=== PATIENT | male | born 1985 | race Two or more races ===

== ENCOUNTER 2017-04-03 11:10 | Emergency (ER) | payer SELFPAY ==
[2017-04-03 11:15] VITALS: BP 126/80; BMI 27.3
--- NOTE | 2017-04-03 11:34 | DR.GENAD ---
HPI - PCP Primary Care Physician: CHARLIE - HPI Comment HPI Comment: PAIN ASSOCIATED WITH WEAKNESS AND SOB. NO FEVER. - Complaint/Symptoms Chief Complaint Doctors Comments: CHEST PAIN TIMES 5 DAYS. INTERMITTENT. Chief Complaint:: PATIENT STATED HE HAS HAD CHEST PAIN THAT GOES AND COMES FOR 5 DAYS . WHEN IT COMES ITS STABING PAIN - Nurses notes reviewed Nurses Notes Review: Yes - Source History Provided: Patient - Mode of Arrival Mode of Arrival: Ambulatory - Timing Onset of Chief Complaint: 03/29/17 Came on: Suddenly - Duration Duration: Constant Duration: Days - Severity Severity: Moderate PMH - PMH Past Medical History: No Past Medical History: GERD Past Surgical History: No Surgical History: No History - Family History History of Family Medical Conditions: No - Social History Does patient currently use any type of tobacco product: No Have you used tobacco products in the last 12 months: No Type of Tobacco Use: None Does any household member use tobacco: No Alcohol Use: None Do you use any recreational Drugs:: No Lives With: Family Lives Where: Home - infectious screening In the last 2 months have you had wt loss of >10#?: NO Have you had fever, night sweats or hemotysis?: No Have you traveled outside the country in the last 6 months?: No Isolation: Standard ROS - Review of Systems Constitutional: Weakness, Fatigue. negative: Chills, Fever, Loss of Appetite Eyes: No Symptoms Reported. negative: Eye Pain, Discharge ENTM: No Symptoms Reported. negative: Ear Pain, Nose Discharge, Nose Congestion , Throat Pain Respiratoy: Short of Breath. negative: Productive Cough, Non-Productive Cough, Wheezing, Hemoptysis Cardiovascular: Chest Pain. negative: Edema, Palpitations Gastrointestinal/Abdominal: Nausea. negative: Abdominal Pain, Constipation, Diarrhea, Vomiting Genitourinary: No Symptoms Reported. negative: Dysuria, Frequency, Hematuria Neurological: Weakness. negative: Headache, Dizziness Musculoskeletal: Muscle Pain PE - Vital Signs Vitals: Temperature 98.4 F Pulse Rate 67 Respiratory Rate 18 Blood Pressure 126/80 O2 Sat by Pulse Oximetry 100 ROR - Labs Reviewed Result Diagrams: 04/03/17 11:43 04/03/17 11:43 Laboratory: WBC 6.9 X10^3/uL (3.6-10.0) 04/03/17 11:43 RBC 5.10 X10^6/uL (4.7-6.0) 04/03/17 11:43 Hgb 16.0 g/dL (13.5-18.0) 04/03/17 11:43 Hct 45.6 % (42.0-54.0) 04/03/17 11:43 MCV 89.4 fL (80.0-100.0) 04/03/17 11:43 MCH 31.3 pg (27.0-34.0) 04/03/17 11:43 MCHC 35.0 g/dL (33.0-35.0) 04/03/17 11:43 RDW 12.6 % (11.6-16.5) 04/03/17 11:43 Plt Count 244 X10^3/uL (150.0-450.0) 04/03/17 11:43 MPV 6.7 fL (7.4-11.0) L 04/03/17 11:43 Neut % 63.2 % (42.0-75.0) 04/03/17 11:43 Lymph % 26.4 % (21.0-51.0) 04/03/17 11:43 Luna % 6.6 % (0.0-13.0) 04/03/17 11:43 Eos % 3.2 % (0.9-2.9) H 04/03/17 11:43 Baso % 0.6 % (0.2-1.0) 04/03/17 11:43 Neut # 4.4 x10^3/uL (2.2-4.8) 04/03/17 11:43 Lymph # 1.8 X10^3/uL (1.3-2.9) 04/03/17 11:43 Luna # 0.5 x10^3/uL (0.3-0.8) 04/03/17 11:43 Eos # 0.2 x10^3/uL (0.0-0.2) 04/03/17 11:43 Baso # 0.0 X10^3/uL (0.0-0.1) 04/03/17 11:43 Absolute Nucleated RBC 0.0 /100WBC 04/03/17 11:43 Sodium 141 mmol/L (136-145) 04/03/17 11:43 Corrected Sodium TNP 04/03/17 11:43 Potassium 3.8 mmol/L (3.5-5.1) 04/03/17 11:43 Chloride 103 mmol/L (98-107) 04/03/17 11:43 Carbon Dioxide 28.0 mmol/L (21-32) 04/03/17 11:43 BUN 10 mg/dL (7-18) 04/03/17 11:43 Creatinine 0.85 mg/dL (0.70-1.30) 04/03/17 11:43 Est GFR (MDRD) Af Amer > 60 (>60) 04/03/17 11:43 Est GFR (MDRD) Non-Af > 60 (>60) 04/03/17 11:43 Glucose 103 mg/dL (65-99) H 04/03/17 11:43 Calcium 9.2 mg/dL (8.5-10.1) 04/03/17 11:43 Corrected Calcium TNP 04/03/17 11:43 Total Bilirubin 0.60 mg/dL (0.2-1.0) 04/03/17 11:43 AST 26 Units/L (15-37) 04/03/17 11:43 ALT 58 Units/L (12-78) 04/03/17 11:43 Alkaline Phosphatase 80 Units/L (46-116) 04/03/17 11:43 Creatine Kinase 98 Units/L (39-308) 04/03/17 11:43 CK-MB (CK-2) < 1.0 ng/mL (0-4.0) 04/03/17 11:43 CK/CKMB % Calc 1.0 % (<4) 04/03/17 11:43 Troponin I < 0.02 ng/mL (0-1.5) 04/03/17 11:43 Total Protein 7.7 g/dL (6.4-8.2) 04/03/17 11:43 Albumin 3.9 g/dL (3.4-5.0) 04/03/17 11:43 Globulin 3.8 g/dL (2.5-4.5) 04/03/17 11:43 Albumin/Globulin Ratio 1.0 Ratio (1.1-2.1) L 04/03/17 11:43 Specimen Type Clean catch urine 04/03/17 12:10 Urine Color Yellow (YELLOW) 04/03/17 12:10 Urine Appearance Clear (CLEAR) 04/03/17 12:10 Urine pH 8.0 (5.0 - 8.0) 04/03/17 12:10 Ur Specific [place] 1.010 (1.000-1.030) 04/03/17 12:10 Urine Protein Negative (NEGATIVE) 04/03/17 12:10 Urine Glucose (UA) Negative (NEGATIVE) 04/03/17 12:10 Urine Ketones Negative (NEGATIVE) 04/03/17 12:10 Urine Occult Blood Negative (NEGATIVE) 04/03/17 12:10 Urine Nitrite Negative (NEGATIVE) 04/03/17 12:10 Urine Bilirubin Negative (NEGATIVE) 04/03/17 12:10 Urine Urobilinogen Normal (NORMAL) 04/03/17 12:10 Ur Leukocyte Esterase Negative (NEGATIVE) 04/03/17 12:10 Urine RBC 0-2 /HPF (NEGATIVE) 04/03/17 12:10 Urine WBC 0-2 /HPF (NEGATIVE) 04/03/17 12:10 Ur Squamous Epith Cells Negative /HPF (NEGATIVE) 04/03/17 12:10 Urine Bacteria Negative /HPF (NEGATIVE) 04/03/17 12:10 Ur Culture Indicated? No/not indicated 04/03/17 12:10 Urine Opiates Screen Negative (NEG=<300) 04/03/17 12:10 Urine Methadone Screen Negative (NEG=<300) 04/03/17 12:10 Ur Barbiturates Screen Negative (NEG=<200) 04/03/17 12:10 Ur Phencyclidine Scrn Negative (NEG=<25) 04/03/17 12:10 Ur Amphetamines Screen Negative (NEG=<1000) 04/03/17 12:10 U Benzodiazepines Scrn Negative (NEG=<200) 04/03/17 12:10 Urine Cocaine Screen Negative (NEG=<300) 04/03/17 12:10 U Marijuana (THC) Screen Negative (NEG=<50) 04/03/17 12:10 H. pylori IgG Antibody Negative (NEGATIVE) 04/03/17 13:51 - Diagnosis Discharge Problem: Chest pain Qualifiers: Chest pain type: intercostal pain Qualified Code(s): R07.82 - Intercostal pain Shoulder pain Qualifiers: Laterality: right Chronicity: acute Qualified Code(s): M25.511 - Pain in right shoulder - Discharge Plan Disposition: 01 HOME, SELF-CARE Condition: Stable Prescriptions: Ibuprofen [MOTRIN TAB 600 MG *] 600 mg PO BID PRN #20 tab PRN Reason: Pain/Inflammation Ranitidine HCl [ZANTAC TAB 150 MG *] 150 mg PO BID #60 tab - Follow ups/Referrals Follow ups/Referrals: [facility],None [Primary Care Provider] - 3 days - Instructions Instructions: Chest Pain Observation, Shoulder Pain, [id number] Additional Instructions: RETURN TO ED IF WORSE.
[2017-04-03 11:57] LABS: BASOPHILS % (AUTO) 0.6 % (0.2-1.0); EOSINOPHILS # (AUTO) 0.2 x10^3/uL (0.0-0.2); EOSINOPHILS % (AUTO) 3.2 % (0.9-2.9); HEMATOCRIT 45.6 % (42.0-54.0); LYMPHOCYTES # (AUTO) 1.8 X10^3/uL (1.3-2.9); LYMPHOCYTES % (AUTO) 26.4 % (21.0-51.0); MEAN CORPUSCULAR HEMOGLOBIN 31.3 pg (27.0-34.0); MEAN CORPUSCULAR VOLUME 89.4 fL (80.0-100.0); MEAN PLATELET VOLUME 6.7 fL (7.4-11.0); MONOCYTES # (AUTO) 0.5 x10^3/uL (0.3-0.8); MONOCYTES % (AUTO) 6.6 % (0.0-13.0); NEUTROPHILS # (AUTO) 4.4 x10^3/uL (2.2-4.8); NEUTROPHILS % (AUTO) 63.2 % (42.0-75.0); PLATELET COUNT 244 X10^3/uL (150.0-450.0); RED CELL DISTRIBUTION WIDTH 12.6 % (11.6-16.5); WHITE BLOOD COUNT 6.9 X10^3/uL (3.6-10.0)
--- NOTE | 2017-04-03 12:11 | RAD ---
HISTORY: Chest pain Study: Single view chest Comparison: None Findings: The lungs are clear without consolidation, effusion or pneumothorax. The cardiac and mediastinal co ntours are within normal limits. The soft tissues are unremarkable. IMPRESSION: 1. No acute cardiopulmonary abnormality. Reported By:
[2017-04-03 12:12] LABS: BLOOD UREA NITROGEN 10 mg/dL (7-18); CALCIUM 9.2 mg/dL (8.5-10.1); CHLORIDE 103 mmol/L (98-107); CREATININE 0.85 mg/dL (0.70-1.30); GLUCOSE 103 mg/dL (65-99); SODIUM 141 mmol/L (136-145); TROPONIN I < 0.02 ng/mL (0-1.5); eGFR BLACK RACES > 60 (>60); eGFR NON BLACK RACES > 60 (>60)
[2017-04-03 12:16] LABS: ALANINE AMINOTRANSFERASE 58 Units/L (12-78); ALBUMIN 3.9 g/dL (3.4-5.0); ALKALINE PHOSPHATASE 80 Units/L (46-116); ASPARTATE AMINO TRANSFERASE 26 Units/L (15-37); CREATINE KINASE 98 Units/L (39-308); CREATINE KINASE MB < 1.0 ng/mL (0-4.0); TOTAL PROTEIN 7.7 g/dL (6.4-8.2)
[2017-04-03 12:17] LABS: BILIRUBIN,URINE NEGATIVE (NEGATIVE); BLOOD/HEMOGLOBIN,URINE NEGATIVE (NEGATIVE); GLUCOSE, URINE NEGATIVE (NEGATIVE); KETONES,URINE NEGATIVE (NEGATIVE); LEUKOCYTE ESTERASE ,URINE NEGATIVE (NEGATIVE); NITRITES,URINE NEGATIVE (NEGATIVE); PROTEIN,URINE NEGATIVE (NEGATIVE); UROBILINOGEN,URINE NORMAL (NORMAL)
[2017-04-03 12:49] LABS: APPEARANCE,URINE CLEAR (CLEAR); BACTERIA,URINE NEGATIVE /HPF (NEGATIVE); COLOR,URINE YELLOW (YELLOW); RBC,URINE 0-2 /HPF (NEGATIVE); SQUAMOUS EPITHELIAL CELL,UR NEGATIVE /HPF (NEGATIVE)
== END 2017-04-03 14:06 | disposition home or self-care (01) ==
LOC: ER 11:10
DX: R07.82 Intercostal pain (principal); M25.511 Pain in right shoulder
CPT/HCPCS: 36415; 71010; 80053; 80307; 81001; 82550; 82553; 84484; 85025; 86677; 93005; 93010; 99282; 99283; G0434